=== PATIENT | female | born 1955 | race Caucasian/White ===

== ENCOUNTER → 2023-04-18 06:30 | Outpatient (REF) | payer MEDICARE, OTHER, SELFPAY ==
[2023-04-18 07:26] LABS: % Basophils 0.6 % (0-2); % Immature Granulocytes 0.1 % (0-0.5); % Lymphocytes 24.2 % (20.5-51.1); % Monocytes 6.6 % (1.7-9.3); % Neutrophils 67.5 % (42.2-75.2); Absolute Eosinophils 0.1 10^3/uL (0-0.7); Absolute Lymphocytes 1.7 10^3/uL (1.2-3.4); Absolute Monocytes 0.5 10^3/uL (0.1-0.6); Absolute Neutrophils 4.6 10^3/uL (1.4-6.5); Hematocrit 39.9 % (37.0-47.0); Hemoglobin 13.3 g/dL (12.0-16.0); Mean Corp Hgb Conc. 33.3 g/dL (33.0-37.0); Mean Corpuscular Hgb 29.5 pg (27.0-31.0); Mean Corpuscular Volume 88.5 fL (81.0-99.0); Mean Platelet Volume 10.6 fL (7.4-10.4); Nucleated Red Blood Cells % 0 %; Platelet Count 218 10^3/uL (130-400); Red Blood Cell Count 4.51 10^6/uL (4.20-5.40); Red Cell Dist. Width 13.2 % (11.5-14.5); White Blood Cell Count 6.9 10^3/uL (4.8-10.8)
[2023-04-18 07:49] LABS: ALT (SGPT) 22 U/L (0-35); AST (SGOT) 31 U/L (14-36); Albumin 4.6 g/dl (3.5-5.0); Alkaline Phosphatase 65 U/L (38-126); Blood Urea Nitrogen 21 mg/dl (7-17); Carbon Dioxide 33 mmol/L (22-30); Chloride 98 mmol/L (98-107); Glucose 87 mg/dl (70-99); HDL Cholesterol 62 mg/dl; LDL Cholesterol, Calculated 76 mg/dl; Potassium 3.6 mmol/L (3.5-5.1); Sodium 139 mmol/L (135-145); Total Bilirubin 1.2 mg/dl (0.2-1.3); Total Cholesterol 155 mg/dl (50-199); Total Protein 7.8 g/dl (6.3-8.2); Triglyceride 89 mg/dl (10-149); Very Low Density Lipoprotein 17 mg/dl (0-30); eGFR 40.73
[2023-04-18 08:26] LABS: TSH Reflex To Free T4 1.42 uIU/ml (0.47-4.68)
== END ==
LOC: REG 06:30
PROVIDERS: ATTENDING PHYSICIAN Nurse Practitioner Adult Health
DX: E78.00 Pure hypercholesterolemia, unspecified (principal); N18.32 Chronic kidney disease, stage 3b; Z00.00 Encounter for general adult medical examination without abnormal findings; Z79.899 Other long term (current) drug therapy
CPT/HCPCS: 36415; 80053; 80061; 84443; 85025

== ENCOUNTER → 2023-11-03 08:29 | Outpatient (REF) | payer MEDICARE, OTHER, SELFPAY ==
[2023-11-03 09:45] LABS: % Basophils 0.5 % (0-2); % Eosinophils 0.7 % (0-6); % Immature Granulocytes 1.5 % (0-0.5); % Lymphocytes 20.7 % (20.5-51.1); % Monocytes 6.7 % (1.7-9.3); % Neutrophils 69.9 % (42.2-75.2); Absolute Immature Granulocytes 0.1 10^3/uL (0-0.05); Absolute Lymphocytes 1.1 10^3/uL (1.2-3.4); Absolute Monocytes 0.4 10^3/uL (0.1-0.6); Absolute Neutrophils 3.9 10^3/uL (1.4-6.5); Hematocrit 38.4 % (37.0-47.0); Hemoglobin 12.7 g/dL (12.0-16.0); Mean Corp Hgb Conc. 33.1 g/dL (33.0-37.0); Mean Corpuscular Hgb 29.3 pg (27.0-31.0); Mean Corpuscular Volume 88.7 fL (81.0-99.0); Mean Platelet Volume 10.5 fL (7.4-10.4); Nucleated Red Blood Cells % 0 %; Platelet Count 200 10^3/uL (130-400); Red Blood Cell Count 4.33 10^6/uL (4.20-5.40); Red Cell Dist. Width 12.8 % (11.5-14.5); White Blood Cell Count 5.5 10^3/uL (4.8-10.8)
[2023-11-03 10:09] LABS: ALT (SGPT) 20 U/L (0-35); AST (SGOT) 28 U/L (14-36); Albumin 4.4 g/dl (3.5-5.0); Alkaline Phosphatase 58 U/L (38-126); Blood Urea Nitrogen 22 mg/dl (7-17); Calcium 10.2 mg/dl (8.4-10.2); Carbon Dioxide 33 mmol/L (22-30); Chloride 99 mmol/L (98-107); Glucose 86 mg/dl (70-99); HDL Cholesterol 48 mg/dl; Iron 95 ug/dl (37-170); Potassium 3.6 mmol/L (3.5-5.1); Sodium 143 mmol/L (135-145); Total Bilirubin 1.2 mg/dl (0.2-1.3); Triglyceride 104 mg/dl (10-149); Very Low Density Lipoprotein 20 mg/dl (0-30); eGFR 44.51
[2023-11-03 10:18] LABS: Percent Saturation 30 % (20-50); Total Iron Binding Capacity 314 ug/dl (265-497)
[2023-11-03 10:23] LABS: LDL Cholesterol, Calculated 72 mg/dl; Total Cholesterol 140 mg/dl (50-199); Total Protein 7.1 g/dl (6.3-8.2)
[2023-11-03 11:03] LABS: TSH Reflex To Free T4 1.41 uIU/ml (0.47-4.68)
[2023-11-03 11:08] LABS: Ferritin 43.6 ng/ml (11.1-264.0)
== END ==
LOC: REG 08:29
PROVIDERS: ATTENDING PHYSICIAN Nurse Practitioner Adult Health
DX: Z00.00 Encounter for general adult medical examination without abnormal findings (principal); E78.00 Pure hypercholesterolemia, unspecified; N18.32 Chronic kidney disease, stage 3b; Z79.899 Other long term (current) drug therapy; Z13.29 Encounter for screening for other suspected endocrine disorder; E61.1 Iron deficiency
CPT/HCPCS: 36415; 80053; 80061; 82728; 83540; 83550; 84443; 85025

== ENCOUNTER → 2023-11-17 12:39 | Outpatient (REF) | payer MEDICARE, OTHER, SELFPAY | LOC: RCS 12:39 | PROVIDERS: ATTENDING PHYSICIAN Internal Medicine; FAMILY PHYSICIAN Nurse Practitioner Adult Health | DX: I35.1 Nonrheumatic aortic (valve) insufficiency (principal) | CPT/HCPCS: 93306 ==

== ENCOUNTER → 2024-01-13 11:20 | Outpatient (REF) | payer MEDICARE, OTHER, SELFPAY | LOC: WDC 11:20 | PROVIDERS: ATTENDING PHYSICIAN Obstetrics & Gynecology Gynecology; FAMILY PHYSICIAN Nurse Practitioner Adult Health | DX: Z12.31 Encounter for screening mammogram for malignant neoplasm of breast (principal) | CPT/HCPCS: 77063; 77067 ==

== ENCOUNTER → 2024-01-23 09:32 | Outpatient (REF) | payer MEDICARE, OTHER, SELFPAY | LOC: WDC 09:32 | PROVIDERS: ATTENDING PHYSICIAN Obstetrics & Gynecology Gynecology; FAMILY PHYSICIAN Nurse Practitioner Adult Health | DX: R92.8 Other abnormal and inconclusive findings on diagnostic imaging of breast (principal) | CPT/HCPCS: 76642 ==

== ENCOUNTER 2024-05-03 14:24 | Inpatient (IN) | payer MEDICARE, OTHER, SELFPAY ==
[2024-05-03] VITALS (35 sets, daily range): BP systolic 113–176; BP diastolic 41–152; BMI 29.1
[2024-05-03] MEDS: CARDIZEM 10 MG IV (12:15)
[2024-05-03] MEDS: CARDIZEM 125 IV (12:20)
--- NOTE | 2024-05-03 12:26 | ED.GENMED ---
History of Present Illness
<Nadege Whitfield PA-C - Last Filed: 05/03/24 15:57>
General
Chief Complaint: Heart Rate Problem
Source: patient
Exam Limitations: none
Time Seen by Provider: 05/03/24 12:12
Nursing documentation reviewed up to this point in time: agreed with
History of Present Illness
History of Present Illness:
69 y/o F
factor v leiden, asthma, dvt, htn, hld
massive GIB on ac, so no longer on them
here after PCP found her in afib with RVR, no known history
she had CVA int he past
no cp, sob, ysncope, lightehadedness, swelling in legs, alcohol abuse
pt was completely asymptomatic.
Past History
<JENNIE Chaney Last Filed: 05/03/24 15:57>
Past History
ED Past Medical History: Asthma, GERD, HTN, Other ( fibromyalgia, osteoporosis) and Other ( DVT, PNA, History of Appendix being on the left, Phlebitis, hemorrhoids)
ED Past Surgical History: Other (Hemorrhoids)
Social History
Tobacco: Non-smoker
Alcohol: None
Drug: None
Personal:
Living: alone
Family History
Family History: Other (Mother with lung cancer and vocal cord cancer, dad with ME and CVA)
Review of Systems
<JENNIE Chaney Last Filed: 05/03/24 15:57>
Review of Systems
Allergies reviewed?: Yes
All Other Systems: Not applicable
Phy Exam
<JENNIE Chaney Last Filed: 05/03/24 15:57>
Physical Exam
Physical Exam:
GENERAL: Alert , in no apparent distress
EYE: pupils equal and reactive
NECK: Supple
ENT: o/p clr, mmm.
CARDIAC: atrial fib irreiguarly irregular and tachycardic, no edema
LUNGS: Clear breath sounds bilaterally, no acute respiratory distress, no wheezes/rales/rhonchi
ABDOMEN: Soft, without focal tenderness, no r/g, no cvat, normal bowel sounds
NEUROLOGICAL: Alert and oriented, no focal neuro deficits
SKIN: Warm and dry, skin intact.
MUSCULOSKELETAL: No edema, well perfused. neg rose mary's sign
PSYCH: Normal and appropriate interaction.
Course
<Nadege Whitfield PA-C - Last Filed: 05/03/24 15:57>
Orders/Labs/Results
Orders:
Orders
05/03/24 11:31
EKG [Electrocardiogram (*1)] Urgent
Reason for Study: Palpitations
05/03/24 11:32
EKG- Treatment ONCE
05/03/24 12:18
Diltiazem 125 mg/125 ml Nss [Cardizem] 125 mg in 125 ml .ROUTE .STK-MED
Diltiazem HCl [Cardizem] 25 mg .ROUTE .STK-MED ONE
05/03/24 12:22
Diltiazem HCl [Cardizem] 10 mg IV NOW STA
05/03/24 12:28
Complete Blood Count/With Diff Urgent
Comprehensive Metabolic Panel Urgent
Magnesium Urgent
NT-proBNP Urgent
PTT Urgent
Prothrombin Time Urgent
TSH Reflex To Free T4 Urgent
Troponin I Urgent
05/03/24 12:30
Diltiazem 125 mg/125 ml Nss [Cardizem] 125 mg in 125 ml IV PER PROTOCOL
Initial dose in mg/hr, then titrate:: 5
Titrate to keep:: Heart rate 80-100 bpm
Titrate by mg/hr:: 5 mg/hr
Frequency of titrations (minutes):: 15
Maximum dose in mg/hr:: 15
05/03/24 12:33
Electrocardiogram (*1) Urgent
Reason for Study: Atrial Fibrillation
EKG- Treatment ONCE
05/03/24 14:05
Admit/Transfer Patient As Directed
Co-Sign Provider:
Level of Care: Inpatient admission
Assign to:: IVU
Physician / Group: Htay
Diagnosis: Afib with RVR
Reason for Hospitalization: diltiazem drip
Expected length of stay greater than two midnights?: Yes
ELOS- Estimated Length of Stay in days: 4
I certify the patient meets the requirements for IP care: Yes
PRN Pain Medication Management As Directed
May give lesser potent ordered pain med per pt: Yes
preference::
Protocol:: Medication orders for pain may be administered in a
manner that supports deferring to patient preference
when the pt is:
- Requesting an ordered lesser potent pain medication.
Least to most potent pain medications are defined
as: acetaminophen < NSAID < tramadol < opioids
(morphine, oxycodone, hydromorphone).
- Requesting a lesser dose of the same medication IF
ORDERED.
- Requesting a less intrusive route of administration
if both routes are prescribed by the provider (PO <
IV).
05/03/24 14:07
Code Status As Directed
Resuscitation Status: Full Code
Abnormal Lab Results
05/03/24
12:28
MPV 11.1 H fL
(7.4-10.4)
BUN 25 H mg/dl
(7-17)
Creatinine 1.2 H mg/dL
(0.6-1.0)
Calcium 10.5 H mg/dl
(8.4-10.2)
05/03/24 12:28
05/03/24 12:28
Vital Signs
Initial and Last Documented VS:
Initial Vital Signs
Temp Pulse Resp BP Pulse Ox
36.8 C 139 18 176/103 95
05/03/24 11:35 05/03/24 11:35 05/03/24 11:35 05/03/24 11:35 05/03/24 11:35
Last Documented Vital Signs
Temp Pulse Resp BP Pulse Ox
36.8 C 120 20 113/70 95
05/03/24 11:35 05/03/24 13:30 05/03/24 13:30 05/03/24 13:30 05/03/24 13:30
<Kevin Russell MD - Last Filed: 05/03/24 12:30>
Orders/Labs/Results
Orders:
Orders
05/03/24 11:31
EKG [Electrocardiogram (*1)] Urgent
Reason for Study: Palpitations
05/03/24 11:32
EKG- Treatment ONCE
05/03/24 12:18
Diltiazem 125 mg/125 ml Nss [Cardizem] 125 mg in 125 ml .ROUTE .STK-MED
Diltiazem HCl [Cardizem] 25 mg .ROUTE .STK-MED ONE
05/03/24 12:22
Diltiazem HCl [Cardizem] 10 mg IV NOW STA
05/03/24 12:28
Complete Blood Count/With Diff Urgent
Comprehensive Metabolic Panel Urgent
Magnesium Urgent
NT-proBNP Urgent
PTT Urgent
Prothrombin Time Urgent
TSH Reflex To Free T4 Urgent
Troponin I Urgent
05/03/24 12:30
Diltiazem 125 mg/125 ml Nss [Cardizem] 125 mg in 125 ml IV PER PROTOCOL
Initial dose in mg/hr, then titrate:: 5
Titrate to keep:: Heart rate 80-100 bpm
Titrate by mg/hr:: 5 mg/hr
Frequency of titrations (minutes):: 15
Maximum dose in mg/hr:: 15
05/03/24 12:33
Electrocardiogram (*1) Urgent
Reason for Study: Atrial Fibrillation
EKG- Treatment ONCE
05/03/24 14:05
Admit/Transfer Patient As Directed
Co-Sign Provider:
Level of Care: Inpatient admission
Assign to:: IVU
Physician / Group: Ganeshy
Diagnosis: Afib with RVR
Reason for Hospitalization: diltiazem drip
Expected length of stay greater than two midnights?: Yes
ELOS- Estimated Length of Stay in days: 4
I certify the patient meets the requirements for IP care: Yes
PRN Pain Medication Management As Directed
May give lesser potent ordered pain med per pt: Yes
preference::
Protocol:: Medication orders for pain may be administered in a
manner that supports deferring to patient preference
when the pt is:
- Requesting an ordered lesser potent pain medication.
Least to most potent pain medications are defined
as: acetaminophen < NSAID < tramadol < opioids
(morphine, oxycodone, hydromorphone).
- Requesting a lesser dose of the same medication IF
ORDERED.
- Requesting a less intrusive route of administration
if both routes are prescribed by the provider (PO <
IV).
05/03/24 14:07
Code Status As Directed
Resuscitation Status: Full Code
Abnormal Lab Results
05/03/24
12:28
MPV 11.1 H fL
(7.4-10.4)
BUN 25 H mg/dl
(7-17)
Creatinine 1.2 H mg/dL
(0.6-1.0)
Calcium 10.5 H mg/dl
(8.4-10.2)
05/03/24 12:28
05/03/24 12:28
Vital Signs
Initial and Last Documented VS:
Initial Vital Signs
Temp Pulse Resp BP Pulse Ox
36.8 C 139 18 176/103 95
05/03/24 11:35 05/03/24 11:35 05/03/24 11:35 05/03/24 11:35 05/03/24 11:35
Last Documented Vital Signs
Temp Pulse Resp BP Pulse Ox
36.8 C 120 20 113/70 95
05/03/24 11:35 05/03/24 13:30 05/03/24 13:30 05/03/24 13:30 05/03/24 13:30
<Nadege Whitfield PA-C - Last Filed: 05/03/24 15:57>
MDM/Problems Addressed
Differential Diagnosis Includes:
afib with RVR, svt, electrolyte problems
MDM/Problems Addressed:
room [facility] 69 y/o F with h/o HTN, CVA, factor v leiden but not anticoagulated due to massive GI bleed on AC
here after PCP found her to be in afib with RVR during routine check up ; she has no symptoms
she is on dilt but says no h/o afib
rate was1 160s on arrival and her bp solid 150/110s;
no signs failure;
gave her small bolus cardizem and she is on a drip now at 15
she is quite frequently trying to break, has run of sinus for a few seconds and then right back up;
her rate is more 90s-100s average now on the drip;
will admit
d/w cardiologyst dr. cramer
<Nadege Whitfield PA-C - Last Filed: 05/03/24 15:57>
*Critical Care Note
Total Time (30-74mins, 75-104mins- exclusive of procedures): Not Applicable
ED Attending Note
<Nadege Whitfield PA-C - Last Filed: 05/03/24 15:57>
-
Portions of this chart may have been created with voice recognition software.� Occasional wrong word or��sound alike� substitutions may have occurred due to the inherent limitations of voice recognition software.
<Kevin Russell MD - Last Filed: 05/03/24 12:30>
ED Attending Note
Patient seen and examined by attending physician: Yes
I performed the substantive portion of visit, reviewed & personally made and approve the management plan that is documented in note by myself or ART.: Yes
ED Attending Note:
I have seen and evaluated the patient with a [id number]-vp-amxo encounter. I have spoken to the [PA] and involved in the medical history, the physical exam, medical decision making.
Evaluation and management service: agree unless noted differently below.
Results interpretation: agree unless noted differently below.
69-year-old woman with history of A-fib not on anticoagulation secondary to GI bleed presenting to the emergency room with elevated heart rate. She states that she went to her primary care doctor for routine visit was found to be tachycardic in the
130s. She denies any lightheadedness dizziness chest pain shortness of breath. She states that she does not feel any different. She would not have even came to the emergency department if it was not for her primary care doctor. She currently has
no complaints. She is unsure when she goes into A-fib.
On my evaluation patient is resting comfortably. She appears in no acute distress. Her heart rate is irregularly irregular. Her lungs are clear.
Patient is a 69-year-old woman with history of A-fib not on anticoagulation presenting to the emergency department elevated heart rate. Vitals are notable for heart rate in the 130s to the 150s. Intermittently she does have a pause where she has a
few sinus beats but then goes back into A-fib. She does not appear septic and does not have any clear triggers for her arrhythmia. Will check blood work. Will give diltiazem. Patient will need admission.
Discharge Plan
Departure
Patient Disposition: Admit
Date of Disposition: 05/03/24
Time of Disposition: 13:15
Admit to: IVU
Presentation/result/management discussed w/ accepting MD/DO: Hospitalist
Condition: Fair
Discharge Problem:
Atrial fibrillation with RVR
Interventions
Interventions:
*Risk Screen - Suicide Last Done: 05/03/24 11:35
*General Assessment Last Done: 05/03/24 11:35
*Neglect/Abuse Screening Last Done: 05/03/24 11:35
ED- Cardiac Assessment Last Done: 05/03/24 12:38
ED- Pulmonary Assessment Last Done: 05/03/24 12:38
[2024-05-03 12:47] LABS: % Basophils 0.5 % (0-2); % Eosinophils 0.5 % (0-6); % Immature Granulocytes 0.3 % (0-0.5); % Lymphocytes 20.5 % (20.5-51.1); % Monocytes 6.3 % (1.7-9.3); % Neutrophils 71.9 % (42.2-75.2); Absolute Lymphocytes 1.8 10^3/uL (1.2-3.4); Absolute Monocytes 0.6 10^3/uL (0.1-0.6); Absolute Neutrophils 6.3 10^3/uL (1.4-6.5); Hematocrit 40.4 % (37.0-47.0); Hemoglobin 13.7 g/dL (12.0-16.0); Mean Corp Hgb Conc. 33.9 g/dL (33.0-37.0); Mean Corpuscular Hgb 29.5 pg (27.0-31.0); Mean Corpuscular Volume 86.9 fL (81.0-99.0); Mean Platelet Volume 11.1 fL (7.4-10.4); Nucleated Red Blood Cells % 0 %; Platelet Count 193 10^3/uL (130-400); Red Blood Cell Count 4.65 10^6/uL (4.20-5.40); Red Cell Dist. Width 13.9 % (11.5-14.5); White Blood Cell Count 8.7 10^3/uL (4.8-10.8)
[2024-05-03 12:58] LABS: INR 0.99; PT 13.4 Sec (11.4-14.6)
[2024-05-03 12:59] LABS: ALT (SGPT) 23 U/L (0-35); APTT 31.5 Sec (23.4-35.0); AST (SGOT) 30 U/L (14-36); Albumin 4.8 g/dl (3.5-5.0); Alkaline Phosphatase 64 U/L (38-126); Blood Urea Nitrogen 25 mg/dl (7-17); Calcium 10.5 mg/dl (8.4-10.2); Carbon Dioxide 28 mmol/L (22-30); Chloride 100 mmol/L (98-107); Glucose 97 mg/dl (70-99); Magnesium 1.8 mg/dl (1.6-2.3); Potassium 3.5 mmol/L (3.5-5.1); Sodium 140 mmol/L (135-145); Total Bilirubin 1.2 mg/dl (0.2-1.3); Total Protein 7.7 g/dl (6.3-8.2)
[2024-05-03 13:10] LABS: NT-proBNP 411 pg/ml; Troponin I 0.018 ng/ml
[2024-05-03 13:30] LABS: TSH Reflex To Free T4 0.78 uIU/ml (0.47-4.68)
--- NOTE | 2024-05-03 13:30 | CON.CAR ---
Addendum entered and electronically signed by Dhiraj Box MD 05/03/24 15:29:
69 yo female with PMH of HTN, CVA, prior hemorrhoidal bleeding is admitted with new atrial fibrillation and flutter. She was sent to ED by PCP for tachycardia. She does not feel palps. Exam with RRR, no murmurs, trace LE edema. EKG shows atrial
flutter, also tracing with sinus and A fib.
New A fib and also atrial flutter. Seems to be paroxysmal. Mostly sinus now on diltiazem drip. Continue diltiazem drip overnight. Check echo.
CHADS2-VASC = 5. Prior CVA. Start eliquis 5mg bid, and monitor for hemorrhoidal bleeding.
Original Note:
Consultation
Consultation Request
Date/Time Consultation Requested: 05/03/24 1324
Date/Time Consultation Performed: 05/03/24 1330
Requesting Provider: Nadege Whitfield
Performing Provider: Daylin MANCIA for Dr. Box
Reason for Consultation: AFIB
Medical History
-
Chief Complaint: arrhythmia noted at PCP office
History of Present Illness:
69 y/o female (patient of Dr. Bales) with hypertension, dyslipidemia, factor V Leiden, hx DVT x 2 (previously on Xarelto which was discontinued 2/2 recurrent nosebleeds and GIB- hemorrhoids per OP chart), CKD3, seizure disorder, GERD, JUDY on
CPAP, and CVA (2020). She was seen in her PCP office for routine visit and noted to be tachycardic- EKG done and showed atrial flutter, and sent to ER. In ER, seen to have atrial flutter, as well as AFIB with RVR, which are new diagnoses. She is
asymptomatic. She is on diltiazem drip and has been going in and out of AFIB with RVR, but now is in SR. Her sister is with her at bedside. She is in no distress at the time of my assessment.
Past Medical History
Past Medical History: HTN and Hypercholesterolemia
Social History
Tobacco: Non-Smoker
Alcohol: None
Family History
Family History: CAD (dad)
Allergies / Home Medications
Allergy/AdvReac Type Severity Reaction Status Date / Time
apixaban [From Eliquis] Allergy bleeding Verified 05/09/22 08:43
levetiracetam [From Keppra] Allergy skin Verified 05/09/22 08:43
peeling
Penicillins Allergy Rash Verified 05/09/22 08:43
rivaroxaban [From Xarelto] Allergy bleeding Verified 05/09/22 08:43
�
Med list not yet updated, but did confirm that for cardiac medicines she is on diltiazem 240 mg daily, aspirin 81 mg daily. Also per OP chart, on atorvastatin 80 mg daily.
Review of Systems
-
History Source: Patient
All other systems: Negative unless noted (no new symptoms)
Physical Exam
Vital Signs
Temp Pulse Resp BP Pulse Ox
98.2 F 161 25 143/56 94
05/03/24 11:35 05/03/24 12:38 05/03/24 12:30 05/03/24 12:30 05/03/24 12:30
Lab Results
05/03/24 12:28
05/03/24 12:28
Troponin I 0.018 ng/ml 05/03/24 12:28
Hey-S-Bjxyfdjkyyh Pept 411 pg/ml 05/03/24 12:28
Physical Exam
General: Well Developed, Well Nourished and No Apparent Distress
HEENT: Normocephalic and Anicteric
Respiratory: Clear and Non Labored Respirations
Cardiac: Regular Rhythm
Musculoskeletal: No Edema
Skin: Warm and Dry
Neuro: AO x 3
Psych: Calm
Impression / Plan
-
Atrial flutter (type unknown), paroxysmal AFIB:
-[id number] score is 5 for age, female, HTN, hx CVA- I spoke with her about risk and benefit of OAC. She was on Xarelto before, but I do not see that she was on Eliquis and she is not sure- even though it is on her allergy list (bleeding). She has
a history of bleeding from hemorrhoids per chart, which sounded significant and required PRBC's, and is a reason she is not on OAC as OP per chart. She has had banding procedure. She denies any recent bleeding. I believe that benefit of OAC
outweighs risk and would recommend Eliquis 5 mg PO BID. Can stop aspirin 81 mg with this. Will c/s CM for pricing.
-continue IV diltiazem, which requires intensive monitoring. If she is consistently in SR, would titrate off drip with plans to increase diltiazem to 360 mg daily.
-compliant with CPAP
-TSH WNL
-we reviewed weight loss, aerobic exercise
Hx CVA:
-continue statin, OAC as above
HTN:
-monitor with medicine adjustment
HLD:
-statin
Data Reviewed
-
EKG: Tracing Personally Visualized and interpreted (SR with PAF 111 BPM)
Medical Tests (Nuc Med, Echo etc): Report Reviewed by me (Echo 11/17/23: Normal biventricular size and systolic function without regional wall motion abnormality. Normal diastolic function. Mild mitral regurgitation. Mild aortic regurgitation.
Estimated PASP 29 mmHg and RA estimated 8 mmHg.)
Labs: Labs Reviewed by me
--- NOTE | 2024-05-03 14:09 | HPS.HSE ---
Family Physician
-
Family Physician: GAVINO Marrero
Chief Complaint
-
Tachycardia, Atrial Fibrillation
History of Present Illness
Patent is a 69 y/o female past medical history of left parietal CVA, DVT, Factor 5 Leiden, CKD and seizure disorder who presents with tachycardia and new atrial fibrillation. Patient had a routine appointment with PCP at which time she was noted to
be tachycardia and ECG revealed atrial fibrillation. Patient denies any prior episodes of atrial fibrillation. She denies chest pain, palpitation, dizziness, shortness of breath, weakness or fatigue.
While in the emergency department she was started on a diltiazem drip and has been going in and out of atrial fibrillation on the monitor, currently in sinus.
Medical History
Past Medical History
Past Medical History: Reports Other
Additional Past Medical History:
Left Partial Lobe Infarct
Essential Hypertension
Hyperlipidemia
CKD Stage IIIB
DVT
Factor 5 Leiden
Seizure Disorder
Fibromyalgia
GERD / Prater's Esophagus
Obstructive Sleep Apnea
Past Surgical History: Reports Other
Additional Past Surgical History:
[place]umb[place]t Teeth
Eyelid Lift
Social History
Tobacco: Non-smoker
Alcohol: None
Family History
Family History: Not pertinent
Allergies / Home Medications
Allergies reflects when Allergies were last updated in [facility].
Home Medications with original date entered in [facility]
Allergy/Medication List:
Allergies
Allergy/AdvReac Type Severity Reaction Status Date / Time
apixaban [From Eliquis] Allergy bleeding Verified 05/09/22 08:43
levetiracetam [From Keppra] Allergy skin Verified 05/09/22 08:43
peeling
Penicillins Allergy Rash Verified 05/09/22 08:43
rivaroxaban [From Xarelto] Allergy bleeding Verified 05/09/22 08:43
Home Medications
cholecalciferol (vitamin D3) 50 mcg (2,000 unit) tablet 2,000 unit PO DAILY Supplement 05/18/15
lacosamide 150 mg tablet (Vimpat) 75 mg PO BID SEIZURES 11/24/20
multivitamin with folic acid 400 mcg tablet (Tab-A-Milton) 1 tab PO DAILY Supplement 11/24/20
atorvastatin 40 mg tablet 80 mg PO HS High cholesterol 04/10/22
diltiazem HCl 240 mg capsule,extended release 24 hr 240 mg PO DAILY Arrhythmia 04/10/22
hydrochlorothiazide 25 mg tablet 25 mg PO DAILY Blood pressure 04/10/22
potassium chloride 20 mEq tablet,extended release(part/cryst) 20 meq PO DAILY Electrolyte Repletion 04/10/22
aspirin 81 mg chewable tablet 81 mg PO DAILY Blood clot prevention/tx 04/11/22
ferrous sulfate 324 mg (65 mg iron) tablet,delayed release 324 mg PO DAILY 10/29/22
pantoprazole 40 mg tablet,delayed release (Protonix) 40 mg PO DAILY 10/29/22
polyethylene glycol 3350 17 gram oral powder packet (Miralax) 17 g PO DAILYPRN PRN constipation 10/29/22
acetaminophen 325 mg tablet (Tylenol) 650 mg PO Q6HPRN PRN mild pain 05/03/24
bfuuesg-hcrxnrusq-ehns tablet 1 tab PO DAILY 05/03/24
linaclotide 145 mcg capsule (Linzess) 145 mcg PO DAILYPRN PRN constipation 05/03/24
Review of Systems
-
A 12 point ROS was completed and negative except as noted: Yes
Constitutional: Denies Fever
Respiratory: Denies Cough or Trouble Breathing
Cardiac: Denies Chest Pain or Palpitations
Physical Exam
Vital Signs
Vital Signs
Temp Pulse Resp BP Pulse Ox
98.2 F 120 20 113/70 95
05/03/24 11:35 05/03/24 13:30 05/03/24 13:30 05/03/24 13:30 05/03/24 13:30
Physical Exam
General: Comfortable and Conversant
HEENT: Moist mucous membranes
Respiratory: Clear and Non Labored Respirations
Cardiac: S1/S2 and Regular Rhythm; No Tachycardia
GI: Soft and Non Tender
Rectal: Deferred by Provider
Musculoskeletal: No Clubbing, No Cyanosis and No Edema
Skin: Warm and Dry
Neuro: Awake, Alert, Oriented and Nonfocal/grossly intact
Psych: Calm
Laboratory Results
-
05/03/24 12:28
05/03/24 12:
Laboratory Results
PT 13.4 Sec (11.4-14.6) 05/03/24 12:28
INR 0.99 05/03/24 12:28
APTT 31.5 Sec (23.4-35.0) 05/03/24 12:28
Total Bilirubin 1.2 mg/dl (0.2-1.3) 05/03/24 12:28
AST 30 U/L (14-36) 05/03/24 12:28
ALT 23 U/L (0-35) 05/03/24 12:28
Alkaline Phosphatase 64 U/L (38-126) 05/03/24 12:28
Troponin I 0.018 ng/ml 05/03/24 12:28
Data Reviewed
-
Medical Tests (Nuc Med, Echo, EKG etc): Report Reviewed by me
Lab Data: Labs Reviewed by me
Old Records: Reviewed
Impression/Plan
-
Atrial Fibrillation with Rapid Ventricular Response - New Diagnosis
-Patient appears to have converted to normal sinus rhythm
-Consult Cardiology
-Continue titratable diltiazem infusion
-Continue oral diltiazem based on cardiology recommendations
-Patient previously not on anticoagulation due to massive GI Bleed - Patient would benefit from anti-coagulation given CHADS-VASc 5 - Will defer starting anticoagulation pending patient's discussion with Cardiology
Left Partial Lobe Infarct
-Continue aspirin
Essential Hypertension
-Continue HCTZ with hold parameters
Hyperlipidemia
-Continue atorvastatin
CKD Stage IIIB
-Creatinine at baseline
Seizure Disorder
-Continue Vimpat
GERD / Prater's Esophagus
-Continue Protonix
Obstructive Sleep Apnea
-Patient reports compliance with CPAP at home
Factor 5 Leiden with Hx DVT
-See anticoagulation discussion above
Code Status: Full Code
--- NOTE | 2024-05-03 14:27 | W.PN.UPDATE ---
Addendum entered and electronically signed by Rachid Lyons MD 05/03/24 14:32:
11/17/23 TTE
Normal biventricular size and systolic function without regional wall motion abnormality.
Normal diastolic function.
Mild mitral regurgitation.
Mild aortic regurgitation.
Estimated PASP 29 mmHg and RA estimated 8 mmHg.
No significant change since the prior study of 11/25/2020 when AR was graded at mild to moderate.
Original Note:
Update Note
Progress Note Update
This note serves as an addendum to the H&P by credit coordinator ART Miriam RAMIREZ
HPI
69F HX Lt pareital CVA ( 2020) Factor V Leiden def, HX DVT, DVT, HX GIB ( Hemorrhoids, LA Grade C esophagitis )not on AC due to GIB, fibromyalgia, Sz on Vimpat sent to ER;
- sent to ER from routing PCP visit noted tachyarrhythmias
- asymptomatic
- note fast AF at ER
- Hemodynamically stable
- Now in & out of AF since Dilt is on
PHX; see above
VSS
05/03/24
11:35 05/03/24
12:11 05/03/24
12:15
Temp 98.2 F
Pulse 139 139 148
Resp Rate 18 23
Blood pressure 176/103
SaO2 95 95
Oxygen Mode of Delivery Room air
PE
Gen: NAD, not toxic
HEENT: anicteric, moist OM
Neck: supple
Lungs: summetric AE
Cor: RRR S1 S2
Abdomen: soft benign
CLINICAL COORDINATOR: Nl speech. Nl language, No asymmetric weakness
MS: no edema
Psych: Calm. Appropriate
11/03/23 05/03/24
08:45 12:28
WBC 8.7
Hgb 13.7
Plt Count 193
INR 0.99
BUN 25 H
Creatinine 1.3 H 1.2 H
eGFR 44.51 48.70
EKG @ 1233H
SINUS RHYTHM WITH PAROXYSMAL ATRIAL FIBRILLATION
NONSPECIFIC ST AND T WAVE ABNORMALITY
ABNORMAL ECG
WHEN COMPARED WITH ECG OF 03-MAY-2024 11:34,
ATRIAL FIBRILLATION HAS REPLACED ATRIAL FLUTTER
EKG @ 1131H
ATRIAL FLUTTER WITH VARIABLE A-V BLOCK
ABNORMAL ECG
WHEN COMPARED WITH ECG OF 29-OCT-2022 11:51,
ATRIAL FLUTTER HAS REPLACED SINUS RHYTHM
VENT. RATE HAS INCREASED BY 74 BPM
Last hospitalist admission: 04/10/22 - 04/12/22
PDX: Gastrointestinal bleed. Acute blood loss anemia
ASSESSMENT & PLAN
New onset Fast AF; so far in/out of AF and NSR
Borderline hypokalemia
- Of note; patient is leaning towards AC to prevent CVA
- c/w Dilt gtt to titrate
- c/w PO Diltiazem with plan for weane off Dilt gtt
- ECHO
- CBC card eval for AC challenge
Essential HTN
- c/w Diltiazem gtt
- on HCTZ and K Supplement
HX CKD 3a/b : bl eGFR 40-48. bl Cr 1.2- 1.3
- Trend Cr
Factor V Leiden not on AC due to HX GIB ( Hemorrhoids, LA Grade C esophagitis ) while on Xarelto/Eliquis
HX DVT x 2
HX Lt parietal CVA ( 2020)
HX GERD
HX LA Grade C esophagitis
Pre exiting condition: stable
HLD on hi intensity atorvastatin 80 qpm
Obesity
JUDY on home CPAP HS0 ( will us her own)
Fibromyalgia
HX Sz on Vimpat
HX Lt parietal CVA on ASA and statin ( No residual weakness)
DVT Px: SCD till Card eval for AC
Full code
IVU
--- NOTE | 2024-05-03 18:40 | PTCARENOTE ---
Received pt from the ED. VSS. Orders noted.
[2024-05-03] MEDS: VIMPAT 75 MG PO (19:22)
[2024-05-03] MEDS: ELIQUIS 5 MG PO (19:22)
[2024-05-03] MEDS: CARDIZEM 60 MG PO (20:01)
[2024-05-03] MEDS: MAGNESIUM OXIDE 500 MG PO (22:17)
[2024-05-03] MEDS: KCL 20 MEQ PO (22:18)
[2024-05-03] MEDS: LIPITOR 80 MG PO (22:18)
--- NOTE | 2024-05-03 22:44 | PTCARENOTE ---
Rec'd pt. at beginning of shift in NSR rate high 50's-60's. Cardizem gtt infusing at 10 mg/hr; titrated down to 5 mg/hr and Dr. Tao notified; EKG completed and shown to him; ordered to dc drip and start Cardizem PO dosing. First dose given
at 1999, pt. remains in NSR 50's-60s. Pt. has no complaints, very pleasant. Currently resting quietly.
[2024-05-04 02:32] VITALS: BP 144/64
[2024-05-04 02:46] VITALS: BMI 29.4
[2024-05-04 02:47] LABS: Hematocrit 36.5 % (37.0-47.0); Hemoglobin 12.5 g/dL (12.0-16.0); Mean Corp Hgb Conc. 34.2 g/dL (33.0-37.0); Mean Corpuscular Hgb 29.6 pg (27.0-31.0); Mean Corpuscular Volume 86.5 fL (81.0-99.0); Mean Platelet Volume 10.6 fL (7.4-10.4); Platelet Count 174 10^3/uL (130-400); Red Blood Cell Count 4.22 10^6/uL (4.20-5.40); Red Cell Dist. Width 13.9 % (11.5-14.5)
[2024-05-04 03:20] LABS: Blood Urea Nitrogen 25 mg/dl (7-17); Calcium 9.9 mg/dl (8.4-10.2); Carbon Dioxide 29 mmol/L (22-30); Chloride 103 mmol/L (98-107); Estimated Creatinine Clearance 49 ml/min; Glucose 100 mg/dl (70-99); Magnesium 1.9 mg/dl (1.6-2.3); Potassium 3.2 mmol/L (3.5-5.1); Sodium 140 mmol/L (135-145)
[2024-05-04] MEDS: KCL 40 MEQ PO (05:31)
--- NOTE | 2024-05-04 06:49 | W.PN.HOSP.TC ---
Today's Communication/Plan
-
f/w cardiology recommendations
Likely dc
Assessment / Plan
Assessment / Plan
Physical Exam
General: Comfortable and Conversant
HEENT: Moist mucous membranes
Respiratory: Clear and Non Labored Respirations
Cardiac: S1/S2 and Regular Rhythm; No Tachycardia, + murmur
GI: Soft and Non Tender
Rectal: No bleeding.
Musculoskeletal: No Clubbing, No Cyanosis and No Edema
Skin: Warm and Dry
Neuro: Awake, Alert, Oriented and Nonfocal/grossly intact
Psych: Calm
# Paroxysmal Atrial Fibrillation with Rapid Ventricular Response - New Diagnosis and resolved
Back in SR
s/p diltiazem infusion
-Continue oral diltiazem.
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 Patient agreed to try anticoagulation. She was counseled about potential side
effects, she verbalized understanding.
# Hypokalemia
Left Partial Lobe Infarct
On Eliquis, stopped aspirin.
Essential Hypertension
-Continue HCTZ with hold parameters
Hyperlipidemia
-Continue atorvastatin
CKD Stage IIIB
-Creatinine at baseline
Seizure Disorder
-Continue Vimpat
GERD / Prater's Esophagus
-Continue Protonix
Obstructive Sleep Apnea
-Patient reports compliance with CPAP at home
Factor 5 Leiden with Hx DVT
-See anticoagulation discussion above
Code Status: Full Code
Total discharge time spent to see the patient, examine the patient, review data and lab results, discuss discharge/treatment plan with patient and nursing staff around 65 minutes
Anticipated Discharge: Today
Subjective/Interval History
-
Date of Service: May 04, 2024
No chest pain
No palpitation
Objective Data
-
Labs:
Laboratory Results
05/04/24
02:40
WBC 7.0
Hgb 12.5
Hct 36.5 L
Plt Count 174
Sodium 140
Potassium 3.2 L
Chloride 103
Carbon Dioxide 29
BUN 25 H
Creatinine 1.2 H
Glucose 100 H
Calcium 9.9
Vital Signs:
Vital Signs
Temp Pulse Resp BP Pulse Ox
98.2 F 65 16 144/64 93
05/04/24 02:32 05/04/24 02:32 05/04/24 02:32 05/04/24 02:32 05/04/24 02:32
I&O
05/02/24 05/03/24 05/04/24
06:59 06:59 06:59
Intake Total 480 / 480
Balance 480 / 480
[2024-05-04 07:32] VITALS: BP 150/74
--- NOTE | 2024-05-04 08:00 | PTCARENOTE ---
Resumed care of patient from previous RN. NSR HR 60's. cadizem given as well as all morning meds. breaksfast ordered and patient got oob independently and into chair. VSS. will continue to monitor. plans for d/c today.
[2024-05-04] MEDS: PROTONIX 40 MG PO (09:30)
[2024-05-04] MEDS: KCL 20 MEQ PO (09:31)
[2024-05-04] MEDS: ORETIC 25 MG PO (09:31)
[2024-05-04] MEDS: ELIQUIS 5 MG PO (09:31)
[2024-05-04] MEDS: VIMPAT 75 MG PO (09:31)
[2024-05-04] MEDS: THERAGRAN 1 TABLET PO (09:31)
[2024-05-04] MEDS: CARDIZEM CD 360 MG PO (09:45)
[2024-05-04 11:07] VITALS: BP 134/67
--- NOTE | 2024-05-04 11:17 | CM ---
Addendum entered by Juliet Casas 05/04/24 11:52:
After her co-pay has been met her month cost would be $100.00 until her out of pocket cost of $2000.00 has been met. Ater her $2000.00 has been net her co-pay would be zero. Reviewed with her. She is agreeable to the co-pay.
Addendum entered by Juliet Casas 05/04/24 11:50:
Telphone call to [facility] to check on co-pay for Eilquis 5 mg po bid. She has a $590.00 deductible that has not been met. So her first script would be $501.00 for a month. Her second script would be $189.00 to met the rest of her
deductible. After that her co-pay would be $100.00 a month until her out of pocket $200.
Addendum entered by Juliet Casas 05/04/24 11:49:
Telephone call to [facility], ([phone])
Original Note:
Reviewed chart. Met with Mrs. Smiley to review discharge plans. She states prior to admission she resides alone in a two story home with one step to enter. She states she has a full flight of steps to get to bedroom/full bathroom. She states she
has a powder room on the first floor. She states prior to admission she was independent with ambulation and adls. She states she has a CPAP Machine at home. She states she has a prescription plan with [facility] and uses [facility]. Telephone
call to [facility] to check on co-pay for Eliquis 5 mg po bid. Her co-pay for the first month would be $501.00. Placed the one month free coupon in her red discharge folder. Medical work-up in progress. The discharge plan is to return home
with medically stable.
--- NOTE | 2024-05-04 12:52 | W.PN.CD ---
Today's Communication / Plan
-
-Echocardiogram revealed normal LVEF (55-60%) and aortic sclerosis without stenosis with mild aortic regurgitation; no change compared to previous.
-Can discharge home today on Cardizem CD 360 mg daily (patient was taking 240 mg daily at home).
Impression / Plan
-
New onset paroxysmal atrial fibrillation/flutter:
-[id number] score is 5 for age, female, HTN, hx CVA; she was on Xarelto before, but I do not see that she was on Eliquis and she is not sure- even though it is on her allergy list (bleeding). She has a history of bleeding from hemorrhoids per
chart, which sounded significant and required PRBC's, and is a reason she is not on OAC as OP per chart. She has had banding procedure. She denies any recent bleeding.
-Echocardiogram revealed normal LVEF (55-60%) and aortic sclerosis without stenosis with mild aortic regurgitation; no change compared to previous.
-Can discharge home today on Cardizem CD 360 mg daily (patient was taking 240 mg daily at home).
-compliant with CPAP
-TSH WNL
Hx CVA:
-continue statin, OAC as above
HTN:
-Fairly controlled.
-Continue current dose of hydrochlorothiazide.
HLD:
-Continue high-dose atorvastatin.
Physical Exam
Vital Signs/Labs
Vital Signs
Temp Pulse Resp BP Pulse Ox
98.2 F 65 18 134/67 93
05/04/24 11:06 05/04/24 12:00 05/04/24 11:06 05/04/24 11:07 05/04/24 11:06
05/03/24 05/04/24 05/05/24
06:59 06:59 06:59
Actual Weight 85 kg
05/04/24 02:40
05/04/24 02:40
PT 13.4 Sec (11.4-14.6) 05/03/24 12:28
INR 0.99 05/03/24 12:28
APTT 31.5 Sec (23.4-35.0) 05/03/24 12:28
Magnesium 1.9 mg/dl (1.6-2.3) 05/04/24 02:40
05/03/24
12:28
Ujf-T-Smopchjpime Pept 411
LAB Results
05/03/24
12:28
Troponin I 0.018
Physical Exam
Constitutional: No acute distress and Comfortable
EENT: Anicteric
Cardiovascular: Rhythm & rate is regular, Pedal edema is absent, Systolic murmur present (2/6) and S1S2 is normal
Respiratory: Respiratory effort normal and Lungs clear to auscul.
GI: Soft
Neuro/Psych: AO x 3
Other: Skin (Warm, dry, intact)
Data Reviewed
-
Date of Service: May 04, 2024
EKG: Tracing Personally Visualized and interpreted (Telemetry: Sinus rhythm)
Echo: Tracing Personally Visualized and interpreted (EF 55-60%; aortic sclerosis without stenosis, mild aortic regurgitation.)
Labs: Labs Reviewed by me
--- NOTE | 2024-05-04 14:35 | W.DCSUMMARY ---
Discharge Summary
Discharge Data
Date of Admission: 05/03/24
Date of Discharge: 05/04/24
-
Pending Results: No
Hospital Course
69 years old female presented with new onset paroxysmal atrial fibrillation. Patient was started on intravenous Cardizem. She was evaluated by sliver cutter. Echocardiogram showed left ventricular ejection fraction of 55 to 60%, aortic sclerosis
without stenosis, mild aortic regurgitation. Patient had [id number] score is 5 for age, female, hypertension, history of CVA. She was started on oral anticoagulation therapy with Eliquis. Patient was counseled regarding potential side effects of
Eliquis, she verbalized understanding. She converted to sinus rhythm. Cardizem dose was increased to Cardizem CD 360 milligram daily. Her heart rate remained controlled. She did not have chest pain. Aspirin was stopped in favor of continuation
of Eliquis. patient remained hemodynamically stable. She was discharged home in a stable condition.
Discharge Plan
-
Patient Disposition: Home (Routine Discharge)
Discharge Diagnosis/Procedures: New onset paroxysmal atrial fibrillation/flutter:
You are seen by sliver cutter. You are started on new medicine called Eliquis which is anticoagulant/blood thinner.
Potential side effects of Eliquis include bleeding. Avoid falls.
Cardizem was changed to 360 mg daily.
Diet: As tolerated
Referrals:
Macrina Olvera CRNP [Specified Professional Personl] - 05/24/24 10:40 am
Tianna Whitney CRNP [Family Provider] -
Prescriptions:
New
diltiazem HCl 180 mg Capsule,Extended Release 24hr
360 mg PO DAILY Qty: 30 0RF
Eliquis 5 mg Tablet
5 mg PO BID Qty: 60 0RF
Continued
cholecalciferol (vitamin D3) 2,000 UNITS tablet
2,000 unit PO DAILY
lacosamide [Vimpat] 150 MG tablet
75 mg PO BID
multivitamin with folic acid [Tab-A-Milton] 1 TABLET tablet
1 tab PO DAILY
potassium chloride 20 mEq tablet,ER particles/crystals
20 meq PO DAILY
hydrochlorothiazide 25 mg tablet
25 mg PO DAILY
atorvastatin 40 MG tablet
80 mg PO HS
polyethylene glycol 3350 [Miralax] 17 gram Powder In Packet
17 g PO DAILYPRN PRN (Reason: constipation)
ferrous sulfate 324 mg (65 mg iron) Tablet,Delayed Release (Dr/Ec)
324 mg PO DAILY
pantoprazole [Protonix] 40 mg tablet,delayed release (DR/EC)
40 mg PO DAILY
Linzess 145 mcg Capsule
145 mcg PO DAILYPRN PRN (Reason: constipation)
acetaminophen [Tylenol] 325 mg Tablet
650 mg PO Q6HPRN PRN (Reason: mild pain)
bgqedzz-ljetnyxcy-ahzt Tablet
1 tab PO DAILY
Discontinued
diltiazem HCl 240 mg capsule,extended release 24hr
240 mg PO DAILY
aspirin 81 MG tablet,chewable
81 mg PO DAILY
Discharge Orders:
Discharge Patient (As Directed); Ordered 05/04/24
Ordered By: Gelacio Phan
Care Plan Goals
Care Plan Goals:
Problem: Readiness for enhanced knowledge related to diagnosis and treatment plan
Goal: Understand your diagnosis and treatment plan needs, including medications if applicable.
Instructions: Know your diagnosis, underlying causes and treatment plan options, including medications if applicable. Consult with your health care team to learn about your diagnosis and treatment plan, including medications if applicable.
Discharge Date and Time
Print Language: ARMENIAN
== END 2024-05-04 15:05 | disposition home or self-care (01) | DRG 309 ==
LOC: IVU 14:24
PROVIDERS: Physician Assistant; Physician Assistant Medical; ADMITTING PHYSICIAN Internal Medicine; ATTENDING PHYSICIAN Internal Medicine; CONSULT PHYSICIAN Internal Medicine; EMERGENCY PHYSICIAN Student in an Organized Health Care Education/Training Program; FAMILY PHYSICIAN Nurse Practitioner Adult Health
DX: I48.0 Paroxysmal atrial fibrillation (principal); D68.2 Hereditary deficiency of other clotting factors; D68.51 Activated protein C resistance; N18.32 Chronic kidney disease, stage 3b; I12.9 Hypertensive chronic kidney disease with stage 1 through stage 4 chronic kidney disease, or unspecified chronic kidney disease; G40.909 Epilepsy, unspecified, not intractable, without status epilepticus; K21.9 Gastro-esophageal reflux disease without esophagitis; K22.70 Barrett's esophagus without dysplasia; G47.33 Obstructive sleep apnea (adult) (pediatric); Z86.718 Personal history of other venous thrombosis and embolism; E87.6 Hypokalemia; E66.9 Obesity, unspecified; Z68.29 Body mass index [BMI] 29.0-29.9, adult; M79.7 Fibromyalgia; Z86.73 Personal history of transient ischemic attack (TIA), and cerebral infarction without residual deficits; E78.00 Pure hypercholesterolemia, unspecified; Z79.01 Long term (current) use of anticoagulants; I48.92 Unspecified atrial flutter; Z79.82 Long term (current) use of aspirin; Z79.899 Other long term (current) drug therapy; Z80.1 Family history of malignant neoplasm of trachea, bronchus and lung; Z82.3 Family history of stroke; Z82.49 Family history of ischemic heart disease and other diseases of the circulatory system; Z60.2 Problems related to living alone
CPT/HCPCS: 80048; 80053; 83735; 83880; 84443; 84484; 85025; 85027; 85610; 85730; 93005; 93306; 96374; 99285

== ENCOUNTER → 2024-09-13 06:53 | Outpatient (REF) | payer MEDICARE, OTHER, SELFPAY ==
[2024-09-13 07:52] LABS: Urine Character Clear (Clear)
[2024-09-13 08:02] LABS: Urine Red Blood Cell 0-2 /HPF (0-2); Urine White Cell 0-2 /HPF (0-5)
[2024-09-13 08:28] LABS: Blood Urea Nitrogen 24 mg/dl (7-17); Calcium 9.8 mg/dl (8.4-10.2); Carbon Dioxide 30 mmol/L (22-30); Chloride 104 mmol/L (98-107); Glucose 93 mg/dl (70-99); Potassium 3.8 mmol/L (3.5-5.1); Sodium 144 mmol/L (135-145); eGFR 37.26
== END ==
LOC: REG 06:53
PROVIDERS: ATTENDING PHYSICIAN Specialist; FAMILY PHYSICIAN Nurse Practitioner Adult Health
DX: N18.32 Chronic kidney disease, stage 3b (principal)
CPT/HCPCS: 36415; 80048; 81003; 81015; 82570; 84156

== ENCOUNTER → 2024-10-01 10:44 | Outpatient (REF) | payer MEDICARE, OTHER, SELFPAY ==
[2024-10-01 11:47] LABS: Hematocrit 35.0 % (37.0-47.0); Hemoglobin 11.9 g/dL (12.0-16.0); Mean Corp Hgb Conc. 34.0 g/dL (33.0-37.0); Mean Corpuscular Volume 89.7 fL (81.0-99.0); Nucleated Red Blood Cells % 0 %; Platelet Count 158 10^3/uL (130-400); Red Cell Dist. Width 13.1 % (11.5-14.5)
== END ==
LOC: REG 10:44
PROVIDERS: ATTENDING PHYSICIAN Surgery; FAMILY PHYSICIAN Nurse Practitioner Adult Health
DX: K64.8 Other hemorrhoids (principal)
CPT/HCPCS: 36415; 85025

== ENCOUNTER → 2024-10-27 10:50 | Outpatient (REF) | payer MEDICARE, OTHER, SELFPAY ==
[2024-10-27 11:47] LABS: Hematocrit 35.1 % (37.0-47.0); Hemoglobin 11.6 g/dL (12.0-16.0); Mean Corp Hgb Conc. 33.0 g/dL (33.0-37.0); Mean Corpuscular Volume 90.5 fL (81.0-99.0); Nucleated Red Blood Cells % 0 %; Platelet Count 179 10^3/uL (130-400); Red Cell Dist. Width 12.7 % (11.5-14.5)
[2024-10-27 12:06] LABS: ALT (SGPT) 17 U/L (0-35); AST (SGOT) 23 U/L (14-36); Albumin 4.5 g/dl (3.5-5.0); Alkaline Phosphatase 47 U/L (38-126); Blood Urea Nitrogen 20 mg/dl (7-17); Calcium 9.7 mg/dl (8.4-10.2); Carbon Dioxide 31 mmol/L (22-30); Chloride 99 mmol/L (98-107); Glucose 95 mg/dl (70-99); HDL Cholesterol 40 mg/dl; Iron 77 ug/dl (37-170); LDL Cholesterol, Calculated 44 mg/dl; Potassium 3.8 mmol/L (3.5-5.1); Sodium 137 mmol/L (135-145); Total Protein 7.1 g/dl (6.3-8.2); Very Low Density Lipoprotein 29 mg/dl (0-30); eGFR 40.47
[2024-10-27 12:17] LABS: Total Iron Binding Capacity 313 ug/dl (265-497)
[2024-10-27 12:37] LABS: Ferritin 46.9 ng/ml (11.1-264.0)
== END ==
LOC: REG 10:50
PROVIDERS: ATTENDING PHYSICIAN Nurse Practitioner Adult Health; OTHER PHYSICIAN Surgery
DX: I10 Essential (primary) hypertension (principal); Z79.899 Other long term (current) drug therapy; Z13.29 Encounter for screening for other suspected endocrine disorder; Z00.00 Encounter for general adult medical examination without abnormal findings; E61.1 Iron deficiency; N18.32 Chronic kidney disease, stage 3b
CPT/HCPCS: 36415; 80053; 80061; 82728; 83540; 83550; 84443; 85025

== ENCOUNTER → 2024-11-19 11:49 | Outpatient (REF) | payer MEDICARE, OTHER, SELFPAY ==
[2024-11-19 12:52] LABS: Hematocrit 31.6 % (37.0-47.0); Hemoglobin 10.5 g/dL (12.0-16.0); Mean Corp Hgb Conc. 33.2 g/dL (33.0-37.0); Mean Corpuscular Volume 88.8 fL (81.0-99.0); Nucleated Red Blood Cells % 0 %; Platelet Count 237 10^3/uL (130-400); Red Cell Dist. Width 13.2 % (11.5-14.5)
== END ==
LOC: REG 11:49
PROVIDERS: ATTENDING PHYSICIAN Surgery; FAMILY PHYSICIAN Nurse Practitioner Adult Health
DX: K64.8 Other hemorrhoids (principal)
CPT/HCPCS: 36415; 85025

== ENCOUNTER → 2024-12-20 15:29 | Outpatient (REF) | payer MEDICARE, OTHER, SELFPAY ==
[2024-12-20 16:26] LABS: Hematocrit 33.7 % (37.0-47.0); Hemoglobin 10.6 g/dL (12.0-16.0); Mean Corp Hgb Conc. 31.5 g/dL (33.0-37.0); Mean Corpuscular Volume 94.1 fL (81.0-99.0); Nucleated Red Blood Cells % 0 %; Platelet Count 227 10^3/uL (130-400); Red Cell Dist. Width 13.0 % (11.5-14.5)
== END ==
LOC: REG 15:29
PROVIDERS: ATTENDING PHYSICIAN Nurse Practitioner Adult Health
DX: E61.1 Iron deficiency (principal); Z00.00 Encounter for general adult medical examination without abnormal findings; D64.9 Anemia, unspecified
CPT/HCPCS: 36415; 85025

== ENCOUNTER → 2025-01-14 10:18 | Outpatient (REF) | payer MEDICARE, OTHER, SELFPAY | LOC: WDC 10:18 | PROVIDERS: ATTENDING PHYSICIAN Nurse Practitioner Adult Health | DX: Z12.31 Encounter for screening mammogram for malignant neoplasm of breast (principal) | CPT/HCPCS: 77063; 77067 ==

== ENCOUNTER → 2025-01-28 10:11 | Outpatient (REF) | payer MEDICARE, OTHER, SELFPAY | LOC: RAD 10:11 | PROVIDERS: ATTENDING PHYSICIAN Nurse Practitioner Adult Health | DX: Z78.0 Asymptomatic menopausal state (principal) | CPT/HCPCS: 77080 ==